=== PATIENT | female | born 2000 | race Caucasian/White ===

== ENCOUNTER 2022-08-16 18:59 | Emergency (ER) | payer OTHER ==
[~2022-08-16] VITALS: Ht 165 cm; Wt 65.3 kg
--- NOTE | 2022-08-16 19:12 | ED General ---
General Stated Complaint: FEVER History of Present Illness Date Seen by Provider: Aug 16, 2022 Time Seen by Provider: 19:12 Initial Comments 21-year-old female is here with complaints of fever, myalgia, lethargy, mild headaches since yesterday. Patient went on a trip with her friends, and 2 of her friends are sick with similar symptoms as well. Her friends have tested negative for COVID. Denies diarrhea, abdominal pain, nausea and vomiting, dizziness, chest pain, shortness of breath, cough Allergies and Home Medications Allergies Coded Allergies: No Known Drug Allergies (Unverified , 08/16/22) Patient Home Medication List Home Medication List Reviewed: Yes Review of Systems Review of Systems Constitutional: chills, fever, malaise EENTM: no symptoms reported Respiratory: no symptoms reported Cardiovascular: no symptoms reported Gastrointestinal: no symptoms reported Genitourinary: no symptoms reported Musculoskeletal: no symptoms reported Skin: no symptoms reported Psychiatric/Neurological: Headache Hematologic/Lymphatic: No Symptoms Reported Immunological/Allergic: no symptoms reported Physical Exam Vital Signs Vital Signs - First Documented 08/16/22 19:07 Temp 38.5 Pulse 153 Resp 16 B/P (MAP) 124/55 (78) Pulse Ox 99 Capillary Refill : Height, Weight, BMI Height: '" Weight: lbs. oz. kg; BMI Method: General Appearance: No Apparent Distress, WD/WN HEENT: PERRL/EOMI, TMs Normal, Normal ENT Inspection, Pharynx Normal Neck: Full Range of Motion, Normal Inspection, Non Tender, Supple Respiratory: Chest Non Tender, Lungs Clear, Normal Breath Sounds Cardiovascular: Regular Rate, Rhythm Gastrointestinal: Normal Bowel Sounds, Non Tender, Soft Back: Normal Inspection, No CVA Tenderness, No Vertebral Tenderness Extremity: Normal Range of Motion Neurologic/Psychiatric: Alert, Oriented x3, No Motor/Sensory Deficits Skin: Normal Color, Warm/Dry Progress/Results/Core Measures Suspected Sepsis SIRS Temperature: Pulse: Respiratory Rate: Blood Pressure / Mean: Results/Orders Lab Results Laboratory Tests Test 08/16/22 19:17 08/16/22 19:31 Range/Units Influenza Type A (RT-PCR) Not Detected Not Detecte Influenza Type B (RT-PCR) Not Detected Not Detecte SARS-CoV-2 RNA (RT-PCR) Not Detected Not Detecte Urine Color YELLOW Urine Clarity SL CLOUDY Urine pH 6.0 5-9 Urine Specific [place] 1.025 H 1.016-1.022 Urine Protein 1+ H NEGATIVE Urine Glucose (UA) NEGATIVE NEGATIVE Urine Ketones NEGATIVE NEGATIVE Urine Nitrite NEGATIVE NEGATIVE Urine Bilirubin NEGATIVE NEGATIVE Urine Urobilinogen 0.2 < = 1.0 MG/DL Urine Leukocyte Esterase 1+ H NEGATIVE Urine RBC (Auto) TRACE-I H NEGATIVE Urine RBC NONE /HPF Urine WBC 10-25 H /HPF Urine Squamous Epithelial Cells 2-5 /HPF Urine Crystals NONE /LPF Urine Bacteria FEW H /HPF Urine Casts NONE /LPF Urine Mucus SMALL H /LPF Urine Culture Indicated YES Urine Test NEGATIVE NEGATIVE Urine Opiates Screen NEGATIVE NEGATIVE Urine Oxycodone Screen NEGATIVE NEGATIVE Urine Methadone Screen NEGATIVE NEGATIVE Urine Propoxyphene Screen NEGATIVE NEGATIVE Urine Barbiturates Screen NEGATIVE NEGATIVE Ur Tricyclic Antidepressants Screen NEGATIVE NEGATIVE Urine Phencyclidine Screen NEGATIVE NEGATIVE Urine Amphetamines Screen NEGATIVE NEGATIVE Urine Methamphetamines Screen NEGATIVE NEGATIVE Urine Benzodiazepines Screen NEGATIVE NEGATIVE Urine Cocaine Screen NEGATIVE NEGATIVE Urine Cannabinoids Screen NEGATIVE NEGATIVE My Orders Orders - JOLANTA EVERETT MD Covid 19 Inhouse Test (08/16/22 19:21) Influenza A And B By Pcr (08/16/22 19:21) Rapid Strep A Screen (08/16/22 19:21) Drug Screen Stat (Urine) (08/16/22 19:22) Ua Culture If Indicated (08/16/22 19:22) Hcg,Qualitative Urine (08/16/22 19:23) Ketorolac Injection (Toradol Injection) (08/16/22 19:30) Urine Culture (08/16/22 19:31) Medications Given in ED Current Medications Medications Dose Ordered Sig/Rene Route Start Time Stop Time Status Last Admin Dose Admin Ketorolac Tromethamine 30 mg ONCE ONCE IM 08/16/22 19:30 08/16/22 19:31 DC 08/16/22 19:45 30 MG Vital Signs/I&O 08/16/22 19:07 Temp 38.5 Pulse 153 Resp 16 B/P (MAP) 124/55 (78) Pulse Ox 99 Capillary Refill : Progress Note : Progress Note 1. VIRAL SYNDROME: - Rapid Flu/ COVID test/ Rapid Strep: - Toradol im STAT 2. ACUTE CYSTITIS WITH EHMATURIA: - UA is positive for RBCs, WBCs, leukocyte esterase, and bacteria. -Nitrofurantoin 100 mg twice daily for 7 days with first tab stat in ER -Adequate hydration advised -Follow-up with PCP in 7 days Departure Impression Primary Impression: Viral syndrome Additional Impression: Acute cystitis with hematuria Disposition: HOME, SELF-CARE Condition: Stable Departure-Patient Inst. Referrals: FEDERICO VÁSQUEZ (PCP/Family) Primary Care Physician Patient Instructions: Viral Syndrome (DC), Urinary Tract Infection, Adult ED Add. Discharge Instructions: -Nitrofurantoin 100 mg twice daily for 7 days -Adequate hydration advised - Tylenol and Ibuprofen alternating -Follow-up with PCP in 7 days Scripts Nitrofurantoin Macrocrystal (Nitrofurantoin) 100 Mg Capsule 100 MG PO BID for 7 Days, #14 CAP Prov: JOLANTA EVERETT MD 08/16/22 JOLANTA EVERETT MD Aug 16, 2022 19:12
[2022-08-16] MEDS ORDERED: KETOROLAC 30 MG/ML VIAL IM ONE (19:30)
[2022-08-16 19:38] LABS: BILIRUBIN,URINE NEGATIVE (NEGATIVE); CLARITY,URINE SL CLOUDY; COLOR,URINE YELLOW; GLUCOSE, URINE (UA) NEGATIVE (NEGATIVE); KETONES,URINE NEGATIVE (NEGATIVE); LEUKOCYTE ESTERASE ,URINE 1+ (NEGATIVE); NITRITE,URINE NEGATIVE (NEGATIVE); PROTEIN,URINE 1+ (NEGATIVE)
[2022-08-16 19:49] LABS: BACTERIA,URINE FEW /HPF
[2022-08-16 19:51] LABS: AMPHETAMINE SCREEN, URINE NEGATIVE (NEGATIVE); BARBITURATE SCREEN URINE NEGATIVE (NEGATIVE); BENZODIAZEPINES SCREEN URINE NEGATIVE (NEGATIVE); CANNABINOID SCREEN, URINE NEGATIVE (NEGATIVE); COCAINE SCREEN URINE NEGATIVE (NEGATIVE); HCG,QUALITATIVE URINE NEGATIVE (NEGATIVE); METHADONE STAT NEGATIVE (NEGATIVE); OPIATE SCREEN URINE NEGATIVE (NEGATIVE); OXYCODONE STAT NEGATIVE (NEGATIVE); PROPOXYPHENE STAT NEGATIVE (NEGATIVE); TRICYCLIC ANTIDEPRESSANTS SCRE NEGATIVE (NEGATIVE)
[2022-08-16] MEDS ORDERED: NITR100C PO (20:30)
[2022-08-16] MEDS ORDERED: NITROFURANTOIN 100 MG (MACROBID) CAPSULE PO ONE (20:30)
[2022-08-16 20:44] VITALS: BP 113/68
== END 2022-08-16 20:43 | disposition home or self-care (01) ==
LOC: ER FS 19:00
DX: N30.01 Acute cystitis with hematuria (principal); B34.9 Viral infection, unspecified; Z20.822 Contact with and (suspected) exposure to COVID-19
CPT/HCPCS: 80306; 81000; 84703; 87088; 87636; 99284